=== PATIENT | female | born 1960 | race African-American/Black ===

== ENCOUNTER 2017-05-16 11:58 | Day surgery (SDC) | payer SELFPAY ==
[2017-05-10 12:23] VITALS: BMI 22.4
[2017-05-16] MEDS ORDERED: HEPARIN NA (PORCINE) 5,000 UNITS/ML 1ML VIAL ONE (12:13)
[2017-05-16] MEDS ORDERED: BUPIVACAINE HCL/PF 2.5 MG/ML - 30 ML VIAL IJ ONE (12:41)
[2017-05-16] MEDS ORDERED: LIDOCAINE 1%/EPI 1:100000 (20 ML MULTI DOSE VIAL) ONE (12:42)
[2017-05-16] MEDS ORDERED: LIDOCAINE HCL 1%, 10 MG/ML (20ML VIAL) ONE (12:42)
[2017-05-16] MEDS ORDERED: MIDAZOLAM HCL 2 MG/2 ML SINGLE DOSE VIAL ONE (13:36)
[2017-05-16] MEDS ORDERED: PROPOFOL 20 ML ONE ×2 (13:36)
[2017-05-16] MEDS ORDERED: ROCURONIUM BROMIDE 50 MG/5 ML VIAL ONE (13:36)
[2017-05-16] MEDS ORDERED: DEXAMETHASONE SOD PHOSPHATE 4 MG/1 ML VIAL ONE (13:59)
[2017-05-16] MEDS ORDERED: ONDANSETRON 4 MG/2 ML VIAL ONE (13:59)
[2017-05-16] MEDS ORDERED: ceFAZolin SODIUM 1 GM VIAL ONE (13:59)
[2017-05-16] MEDS ORDERED: PROMETHAZINE HCL 25 MG/1 ML VIAL IVPUSH PRN (18:36)
[2017-05-16] MEDS ORDERED: LACTATED RINGERS SOLUTION 1,000 ML IV SCH ×2 (18:45→19:00)
[2017-05-16] MEDS ORDERED: ONDANSETRON 4 MG/2 ML VIAL IVPB PRN (18:48)
--- NOTE | 2017-05-16 18:55 | OP ---
Operative Note - Note: Operative Date: 05/16/17 Pre-Operative Diagnosis: abdominal deformity Operation: abdominoplasty Findings: lipoma on abdominal wall Post-Operative Diagnosis: Same as Pre-op Surgeon: Rubén Romero Specimens Removed: skin, fat, lipoma Estimated Blood Loss (mls): 200 Drains & Tubes with Location: ISIAH x 2
[2017-05-16] MEDS ORDERED: CEFAZOLIN (PRE-DOCKED) 50 ML IVPB SCH (19:00)
[2017-05-16] MEDS ORDERED: CEFAZOLIN 1 GM/D5W 50 ML ONE (20:58)
[2017-05-16] MEDS: INSULIN SLIDING SCALE (NOVOLOG) 1 VIAL SQ SCH (21:13)
[2017-05-16] MEDS: morphine CARPU-JECT 2 MG/1 ML DISP.SYRIN IVPB PRN (22:58)
[2017-05-17] MEDS: CEFAZOLIN 1 GM in DEXTROSE 5%-WATER - 50 ML IVPB SCH ×2 (01:48→09:32)
[2017-05-17] MEDS: morphine CARPU-JECT 2 MG/1 ML DISP.SYRIN IVPB PRN ×3 (02:40→09:27)
[2017-05-17] MEDS: INSULIN SLIDING SCALE (NOVOLOG) 1 VIAL SQ SCH ×2 (06:20→13:36)
[2017-05-17 06:58] VITALS: BP 127/61; PULSE 71; TEMP 99
--- NOTE | 2017-05-17 07:15 | PN ---
Progress Note (short form) - Note Progress Note: VSS AF, All tissues viable, ambulating, urinating, ok for d/c home with instructions
[2017-05-17] MEDS ORDERED: HEPARIN NA (PORCINE) 5,000 UNITS/ML 1ML VIAL SQ SCH (08:00)
[2017-05-17] MEDS ORDERED: PT OWN MED DRAWER 7, Y5N ONE (09:19)
[2017-05-17] MEDS ORDERED: MULTIVITAMINS THER W-MINERALS COMBO TABLET (FP) PO SCH (10:00)
[2017-05-17] MEDS ORDERED: CALCIUM 500MG/VIT-D 200 UNITS COMBO TABLET (FP) PO SCH (10:00)
--- NOTE | 2017-05-17 10:14 | OP ---
DATE OF OPERATION: 05/16/2017 PROCEDURE: Abdominoplasty with bilateral flank liposuction. Excision of lipoma on abdominal wall. This is a separate incidental procedure. PREOPERATIVE DIAGNOSIS: Abdominal deformity. POSTOPERATIVE DIAGNOSIS: Abdominal deformity. DESCRIPTION OF PROCEDURE: The patient was marked in the holding area awake and aware of incisions and resulting scars. She is given 5000 units of subcutaneous heparin preoperatively prior to being brought to the operating room. She was given sequential compression stockings and RASHEL hose. She is counseled on risks, benefits, and alternatives to the procedure and understands and agrees to proceed. She is brought to the operating room. She is positioned by surgical and anesthesia teams. She is given a gram of Ancef preoperatively. Lopes catheter is placed after induction of general anesthesia. It was removed at the end of the procedure. A time-out is called. The patient, procedure, site, and sides are verified. Sequential compression stockings are connected and in use. Incision was made along the infrapannicular crease. Dissection was carried down to the level of the abdominal wall fascia. Dissection was then carried along the abdominal wall fascia to the level of the umbilicus. The umbilicus was then circumcised and developed on a fiber fatty stalk to the abdominal wall. Dissection of the abdominoplasty flap was then brought out to the xiphoid process in the midline costal margins bilaterally. The perforating blood vessels are ligated as they are encountered. A midline plication is then performed with a series of interrupted buried [id number] 1 Prolene suture in the midline followed by a running, locking 1 Prolene suture both above and below the umbilicus leaving adequate for the umbilicus to be translocated. The patient is then flexed 30 degrees where the abdominoplasty flap is translocated. Excess skin and fat is removed. The undersurface flap in the midline is trimmed of excess fat in the subscarpus plane with face lift scissors. Hemostasis meticulously achieved. Tumescent fluid is then infiltrated into bilateral flanks. A total of 600 mL of infiltration fluid is used for wetting solution. This is 20 mL of 1% lidocaine plain and 1 ampule of 1:100,000 epinephrine in L of normal saline. At this point, the umbilicus was then translocated through a structured pattern umbilical incision secured with a series of interrupted buried deep dermal 3-0 Monocryl sutures followed by a 5-0 nylon suture. Liposuction was performed using a Micro-Aire 5-mm cannula on bilateral flanks. A total of 350 mL of fat is lipoaspirated from each flank. The abdominoplasty flaps were then closed with a series of interrupted buried 2-0 Vicryl superficial fascial Ryan layer sutures followed by a series of interrupted buried deep dermal 3-0 Monocryl sutures followed by a running 4-0 middermal V-Lock Monocryl suture followed by a series of interrupted 4-0 nylon suture. The patient is awoken from anesthesia. She is dressed with Steri-Strips, 4x4 gauze, and bacitracin and Xeroform within the umbilicus, and an abdominal binder is applied. She was transferred to a flexed bed and to the recovery room. DYLON ZUÑIGA M.D. [id number]
--- NOTE | 2017-05-17 11:32 | OP ---
ADDENDUM DATE OF ORIGINAL DICTATION: 05/16/2017 The patient was found to have an incidental lipoma of the abdominal wall, which was not previously appreciated or palpated. This was a single, large fat mass different in appearance from the surrounding fat on the patient's subcutaneous abdominal wall. This is dissected separately in an areolar plane surrounding the tumor. Hemostasis is achieved. The tumor is sent in two separate specimens separately to pathology. The remainder of the operation is dictated as previously described. Jorge Luis [id number]
--- NOTE | 2017-05-18 13:04 | PATH ---
Surgical Pathology Report Patient Name: TAMMY BILLINGS [facility]. Rec. #: [id number] /Age/Gender: 1960 (Age: 57) / F Account: [id number] Location: [facility] AMBULATORY Taken: 05/16/2017 Received: 05/16/2017 Reported: 05/18/2017 Physicians: Rubén Romero Specimen(s) Received A: ABDOMINAL SKIN AND TISSUE B: LIPOMA OF ABDOMEN Clinical History Cosmetic Final Diagnosis A. ABDOMINAL SKIN AND TISSUE, ABDOMINOPLASTY: SKIN AND ADIPOSE TISSUE, DESCRIBED (GROSS EXAMINATION ONLY). B. LIPOMA OF ABDOMEN, EXCISION: MATURE ADIPOSE TISSUE, CONSISTENT WITH LIPOMA. Electronically Signed Joyce Murillo M.D. Gross Description A. Received in formalin labeled "abdominal skin and tissue," is a 1837 g aggregate of 2 rand, triangular, unoriented portions of skin with underlying soft tissue. The specimens average 26.5 x 21.0 x 3.5 cm. The epidermal surfaces are unremarkable. Sectioning reveals unremarkable yellow, lobulated adipose tissue. No lesions are identified. No sections are submitted, gross only. B. Received in formalin labeled "lipoma of abdomen," is a 6.3 x 5.0 x 1.8 cm aggregate of multiple portions of yellow, lobulated adipose tissue. Sectioning reveals homogeneous yellow, smooth fat. No areas of hemorrhage or necrosis are identified. Cook Apprentice sections are submitted in 3 cassettes. /05/17/2017 saudi05/17/2017
== END 2017-05-17 13:10 | disposition home or self-care (01) ==
LOC: FASU 11:58 → FM/S 21:03 → FASU 05-17 13:10
PROVIDERS: ATTEND Plastic Surgery
PROC: 0JB80ZZ Excision of Abdomen Subcutaneous Tissue and Fascia, Open Approach (ICD-10-PCS; 2017-05-16)
PROC: 0J080ZZ Alteration of Abdomen Subcutaneous Tissue and Fascia, Open Approach (ICD-10-PCS; principal; 2017-05-16 14:13)
DX: Z41.1 Encounter for cosmetic surgery (principal); M95.8 Other specified acquired deformities of musculoskeletal system; D17.1 Benign lipomatous neoplasm of skin and subcutaneous tissue of trunk
CPT/HCPCS: 88300-TC; 88304-TC; 94010; 94760; J1644